=== PATIENT | female | born 1940 | race Caucasian/White ===

== ENCOUNTER 2020-01-11 11:33 | Observation (INO) | payer MEDICARE ==
[2020-01-05 10:55] LABS: MCV 96.2 fL (80.0-100.0); NUCLEATED RBCS 0 /100WBC
[2020-01-05 10:56] LABS: ABSOLUTE BASOPHILS 0.1 thou/uL (0.0-0.2); ABSOLUTE EOSINOPHILS 0.1 thou/uL (0.0-0.7); ABSOLUTE LYMPHOCYTES 2.4 thou/uL (0.8-5.3); ABSOLUTE MONOCYTES 0.6 thou/uL (0.0-1.2); ABSOLUTE NEUTROPHILS 3.4 thou/uL (1.6-8.1); BASOPHILS 1.8 %; EOSINOPHILS 1.9 %; HEMATOCRIT 37.3 % (37.0-47.0); HEMOGLOBIN 12.6 gm/dL (12.0-15.0); LYMPHOCYTES 36.4 %; MCH 32.4 pg (26.0-34.0); MCHC 33.6 g/dL (28.0-37.0); MONOCYTES 9.2 %; MPV 8.4 fl. (7.2-11.1); PLATELET COUNT* 381 thou/uL (150-400); POLYS 50.7 %; RBC 3.88 mil/uL (4.20-5.00); RDW-CV 14.5 % (10.5-14.5); WBC 6.7 thou/uL (4.0-11.0)
[2020-01-05 10:58] LABS: APTT 26.7 Seconds (25.0-31.3)
[2020-01-05 11:01] LABS: ALBUMIN 3.8 g/dL (3.4-5.0); CALCIUM 9.4 mg/dL (8.5-10.1); POTASSIUM 4.3 mmol/L (3.5-5.1); TOTAL BILIRUBIN 0.5 mg/dL (<0.1-1.0); TOTAL PROTEIN 7.6 g/dL (6.4-8.2)
--- NOTE | 2020-01-05 12:08 | EKG ---
[place] [address] ELECTROCARDIOGRAM REPORT Name: PALOMA PEREZ Room: [facility]#: [id number] Admission: Attend Phys: Porter Cunningham DO Discharge: Date of : 38 Date of Service: 01/05/20 1119 Report #: [id number] THIS REPORT FOR: //name// [facility] Test Date: 2020-01-05 Test Time: 11:19:24 Pat Name: PALOMA PEREZ Department: Room: Gender: Independent Jeweler: : 1940 Requested By: Porter Cunningham Order Number: [id number] Reading MD: Porter Zimmerman Measurements Intervals [place] Rate: 71 P: 35 HI: 120 QRS: 38 QRSD: 72 T: 39 QT: 343 QTc: 373 Interpretive Statements Sinus rhythm RSR' in V1 or V2, right VCD or RVH No previous ECG available for comparison Electronically Signed On 01-05-2020 12:08:29 CDT by Porter Zimmerman [email or web address] <ELECTRONICALLY SIGNED> By: Porter Zimmerman MD, [facility] 01/05/20 1208 1119 1119 Porter Zimmerman MD, FACC /EPI
[2020-01-05 12:18] LABS: ESR (SEDRATE) 30 mm/hr (0-30)
[~2020-01-11] VITALS: Ht 157.5 cm; Wt 72.6 kg
--- NOTE | ~2020-01-11 | OP ---
[address] [address] OPERATIVE REPORT Name: PALOMA PEREZ Room: [address] M.R.#: [id number] Admission: 01/11/20 Attend Phys: Porter Cunningham DO Discharge: Date of : 38 Report #: [id number] THIS REPORT FOR: //name// cc: Marisela Hill MD, Sequita MD ~ THIS REPORT FOR: //name// CC: Porter Hill DICTATED BY: Rico Orta DO DATE OF SERVICE: 01/11/2020 PREOPERATIVE DIAGNOSIS: Right rotator cuff arthropathy. POSTOPERATIVE DIAGNOSIS: Right rotator cuff arthropathy. PROCEDURE PERFORMED: Right reverse total shoulder arthroplasty utilizing the Tornier Aequalis shoulder system with the following components: 1. A 25 mm x 30 mm threaded post-baseplate. 2. A 36 mm centered glenosphere. 3. A size 3B humeral stem. 4. A +0 mm low eccentricity humeral tray. 5. A +6 mm Ultra high molecular weight polyethylene humeral insert. SURGEON: Porter Cunningham DO RED HAT LINUX ENGINEER: Rico Orta DO and Eamon Azul DO ANESTHESIA: General. ESTIMATED BLOOD LOSS: 75 mL. ANTIBIOTICS: 2 grams Ancef IV preoperatively. SPECIMENS: None. COMPLICATIONS: None. DISPOSITION: Stable to PACU. INDICATIONS: The patient is a pleasant 79-year-old female who has been seen and examined in the outpatient orthopedic clinic for her right shoulder pain. Radiographs were obtained, which demonstrated findings consistent with glenohumeral degenerative joint disease with joint space narrowing, osteophytic [facility] [address] [place] [address] OPERATIVE REPORT Name: PALOMA PEREZ Room: [address] Yan.#: [id number] Admission: 01/11/20 Attend Phys: Porter Cunningham DO Discharge: Date of : 38 Report #: [id number] lipping. There was a somewhat high riding of the humeral head on radiographs. MRI was obtained to evaluate the rotator cuff, which did show tearing of the supraspinatus. She tried and failed conservative treatments including activity modification, anti-inflammatories and steroid injections. Treatment options were discussed in detail with the patient. Reverse total shoulder arthroplasty was discussed in detail including the risks, benefits, alternatives and complications, and she wished to proceed with this. DESCRIPTION OF PROCEDURE: The patient was seen and examined in the preoperative holding area. The correct operative extremity was marked. Written consent was obtained for the procedure. The patient was transferred to the operating room and placed supine on the operating table. She was given the benefit of general anesthesia. She was then placed into the beach chair position with head of bed elevated approximately 30-40 degrees. The extremities were well padded and the head was well secured. The right upper extremity was then prepped and draped in the usual sterile fashion. Timeout was performed to verify the correct patient, procedure and operative extremity and all were in agreement. Next, a standard deltopectoral skin incision was made. Dissection was carried down to the cephalic vein. This was dissected out and preserved and the deltopectoral interval was then established. The deltoid adhesions were freed bluntly and the deltoid retractor was then placed. The clavipectoral fascia was incised. The superior margin of the pectoralis major insertion was released approximately 5 mm. Appropriate retractors were then placed. The biceps tendon was identified and a tenotomy was performed. Next, the subscapularis tendon was peeled off of the lesser tuberosity and capsule was released off of the inferior humeral neck. The shoulder was then dislocated. Osteophytes were removed. The intramedullary cut guide was then inserted into the intramedullary canal of the humerus. The humeral head cut was then performed utilizing the guide. The humerus was then reamed and broached up to appropriate size. The size 3 humeral stem was noted to have excellent purchase. This was left in place and attention was turned to the glenoid. Appropriate retractors were placed identifying the glenoid. The remainder of the biceps tendon was then removed. All labral and capsular tissue surrounding the glenoid was released to allow for glenoid exposure. The guidepin was then placed in the central position on the glenoid with 10 degrees of inferior tilt. This was then reamed up to the 29 mm reamer. The center hole was then drilled with the cannulated drill over the guidewire. The depth gauge was used and this was sized to a size 30 drill hole. Next, the 25 x 30 mm threaded post-baseplate was inserted in standard fashion. This was noted to have excellent purchase and excellent coverage of the glenoid. Two 35 mm locking screws were then inserted into the glenoid baseplate. The 36 mm standard glenosphere was then impacted into position and screwed into position. Attention was then turned back to the humerus. The trial tray and polyethylene insert were then inserted into the humeral trial. The shoulder was reduced and taken through range of motion. There was noted to be stable with full range of motion and appropriate tensioning on the conjoined tendon with the +0 mm tray and a +6 mm polyethylene trial. The shoulder was [place] [address] OPERATIVE REPORT Name: PALOMA PEREZ Room: [address] MAlbaro.#: [id number] Admission: 01/11/20 Attend Phys: Porter Cunningham DO Discharge: Date of : 38 Report #: [id number] components were removed. The incision was thoroughly irrigated with normal saline. The final components were assembled on the back table. Final components were then inserted into the humerus. The final +6 ultra high molecular weight polyethylene insert was then inserted and impacted into position. The shoulder was reduced and taken through a range of motion. This was noted to be again stable throughout all range of motion. The patient was noted to have full range of motion. Next, the incision was once again thoroughly irrigated with normal saline. The deltopectoral interval was closed with a running #1 Vicryl. A 2-0 Vicryl was used subcutaneously followed by running 3-0 Stratafix and skin glue. A sterile dressing was applied. The patient was placed in a slingshot right shoulder sling. She was then awakened from anesthesia and transferred to the PACU in stable condition. The patient tolerated the procedure well. There were no complications. By: [id number] Cunningham DO /nt
[~2020-01-11 11:33] MED LIST: AZO CRANBERRY1 EAC1 PO; COZAAR 25 MG TA25 M2 PO; IBUPROFEN 200200 M1 PO; OMEPRAZOLE 20 M20 M1 PO; PEPCID40 MG PO; PROBIOTIC1 EAC7 PO; VITAMIN B122500 MCG PO; VITAMIN D325 MC1 PO
[2020-01-11 17:25] VITALS: BP 141/61
--- NOTE | 2020-01-11 18:11 | NUR ---
Pt admitted to 108 s/p TSR. AOx4 no c/o pain. Surgical dressing in place to Right shoulder, CDI. Pt advanced to reg diet and tolerated dinner well. No c/o nausea since arrival to floor. Hourly rounding complete. Will continue to monitor
[2020-01-11 23:45] VITALS: BP 154/52
[2020-01-12 04:24] VITALS: BP 132/59
--- NOTE | 2020-01-12 05:43 | NUR ---
PATIENT HAS SLEPT WELL THROUGHOUT MOST OF THE NIGHT. VSS ON RA. MEDICATIONS GIVEN ORDERED AND CHARTED. PATIENT REFUSED NARCOTIC PAIN MEDICATIONS AND REQUESTED TO TAKE TYLENOL X 1 AND HER PAIN HAS BEEN WELL CONTROLLED. PATIENT IS UP WITH SBA TO THE BATHROOM. DRESSING TO RIGHT SHOULDER IS C/D/I AND IMMOBILIZER IN PLACE. PATIENT URINATING ADEQUATELY. IV IN LEFT FOREARM-LR @ 50ML/HR. IV ABT GIVEN WITHOUT ANY ADVERSE SIDE EFFECTS NOTED. PATIENT INSTRUCTED TO USE CALL LIGHT WHEN NEEDING ASSISTANCE. HOURLY ROUNDS MADE. WILL CONTINUE WITH PLAN OF CARE AND NURSING TO MONITOR.
[2020-01-12] MEDS ORDERED: TRAMADOL 50 MG50 MG PO (08:53)
[2020-01-12] MEDS ORDERED: ASPIRIN325 PO (08:53)
[2020-01-12] MEDS ORDERED: OXYCODONE HCL 55 MG PO (08:53)
[2020-01-12 08:56] VITALS: BP 137/50
--- NOTE | 2020-01-12 09:38 | NUR ---
PATIENT IS GOING TO BE DISCHARGED HOME TODAY BUT DOES NOT HAVE A RIDE HOME UNTIL 4:30 OR 5:00 TODAY. I TOLD HER NOT TO WORRY ABOUT THAT IT WOULD BE FINE.
[2020-01-12 10:56] VITALS: BP 137/50
[2020-01-12 11:04] VITALS: BP 137/50
[2020-01-12 11:38] VITALS: BP 102/34
--- NOTE | 2020-01-12 15:12 | NUR ---
SPOKE WITH PT. SHE WAS ALERT AND ORIENTED. STATED SHE LIVES ALONE. HER FAMILY IS SUPPORTIVE AND WILL HELP HER IN THE EVENINGS AND WEEKEND. SHE HAS NOT USED HH IN THE PAST. SHE CHOSE [facility] FOR HOME [facility]. PT/OT ORDERED. SHE DOES NOT USE A CANE OR WALKER. SHE IS NORMALLY INDEPENDENT. HAS IMOBILIZER ON. STATED HER PAIN IS CONTROLLED. FAXED REFERRAL AND DISCHARGE ORDERS TO [facility]. TOLD PT.THEY WOULD CALL HER TO SET UP APPTS. DAUGHTER WILL PICK HER UP ABOUT 4:30.
[2020-01-12 16:40] VITALS: BP 137/50
--- NOTE | 2020-01-12 17:13 | NUR ---
PATIENT HAD A GOOD DAY. SHE DID REFUSE TO TAKE ANYTHING BUT TYLENOL EVEN THOUGH I DID SUGGEST IT. SHE FINALLY AGREED TO TAKE A TRAMADOL PRIOR TO DISCHARGE FOR A PAIN OF 10/10. SHE KEPT ICE ON THE SHOULDER OFF AND ON TODAY AND WAS UP AMBULATING IN THE ROOM AND TO THE BATHROOM. SHE DISCHARGED HOME AT [facility] VIA WHEELCHAIR WITH DAUGHTER. SHE VERBALIZED UNDERSTANDING OF ALL DISCHARGE INSTRUCTIONS AND I DID GO OVER THE MEDICATIONS TO CONTINUE AND SHE WOULD NOT TAKE THE SCRIPT FOR THE OXYCODONE BUT AGREED TO TAKE THE TRAMADOL PRESCRIPTION EVEN THOUGH SHE SAID THAT SHE WAS NOT GOING TO FILL IT. SHE STATES THAT SHE IS GOING TO TAKE ALEVE AT HOME BUT TOOK THE SCRIPT "JUST IN CASE." SHE HAS TAKEN THIS MEDICATION BEFORE AND STATES THAT SHE DOES NOT LIKE THE WAY IT MAKES HER FEEL. ALL BELONGINGS WERE BAGGED AND EVERYTHING HOME WITH HER.
== END 2020-01-12 16:45 | disposition home or self-care (01) ==
LOC: M.PRE 11:33 → M.ORTHSURG 12:01 → M.TBA 12:01 → M.PRE 12:53 → M.ORTHSURG 16:57 → M.PRE 17:19 → M.ORTHSURG 01-12 16:45
PROVIDERS: Orthopaedic Surgery; ADMIT Internal Medicine; ATTEND Internal Medicine
DX: Z03.818 Encounter for observation for suspected exposure to other biological agents ruled out (principal); M12.811 Other specific arthropathies, not elsewhere classified, right shoulder; M75.101 Unspecified rotator cuff tear or rupture of right shoulder, not specified as traumatic; I10 Essential (primary) hypertension; K21.9 Gastro-esophageal reflux disease without esophagitis; Z87.891 Personal history of nicotine dependence